=== PATIENT | female | born 1975 | race Caucasian/White ===

== ENCOUNTER → 2018-02-03 | Outpatient (CLI) | payer BC | END | disposition home or self-care (01) | LOC: LAB SHORT 14:10 → PLD 14:10 | DX: L57.0 Actinic keratosis (principal) | CPT/HCPCS: 88305 ==

== ENCOUNTER → 2021-02-26 | Outpatient (CLI) | payer BC | LOC: LAB SHORT 11:31 → LAB 11:31 | DX: D48.5 Neoplasm of uncertain behavior of skin (principal); D23.62 Other benign neoplasm of skin of left upper limb, including shoulder; D22.71 Melanocytic nevi of right lower limb, including hip; Z88.2 Allergy status to sulfonamides; Z88.5 Allergy status to narcotic agent | CPT/HCPCS: 88305 ==

== ENCOUNTER 2024-09-13 08:41 | Day surgery (SDC) | payer BC ==
[~2024-09-13] VITALS: Ht 165.1 cm; Wt 76.1 kg
[~2024-09-13 08:41] MED LIST: IBUP400 PO; Lactated Ringer's 1,000 ML IV ONE; PROM25 PO; Percocet 5-3251 EACH PO; Prinivil10 MG PO; propofoL 50 ML IV ONE
[2024-09-13] MEDS ORDERED: MAGCHL64ER (09:27)
[2024-09-13] MEDS ORDERED: VITAMIN C ZINC (09:27)
[2024-09-13] MEDS ORDERED: WEGOVY1 MG/0.5 M (09:27)
[2024-09-13] MEDS ORDERED: OMEGA-3 FISH O1 EAC4 (09:28)
[2024-09-13] MEDS ORDERED: Lactated Ringer's 1,000 ML IV ONE (10:13)
[2024-09-13 15:05] VITALS: BP 127/82
== END 2024-09-13 11:15 | disposition home or self-care (01) ==
LOC: ORSCSDS 08:41
PROVIDERS: Surgery
PROC: 0DJD8ZZ Inspection of Lower Intestinal Tract, Via Natural or Artificial Opening Endoscopic (ICD-10-PCS; principal; 2024-09-13 10:00)
DX: Z12.11 Encounter for screening for malignant neoplasm of colon (principal); Z79.85 Long-term (current) use of injectable non-insulin antidiabetic drugs; Z79.899 Other long term (current) drug therapy
CPT/HCPCS: J2704; J7120